=== PATIENT | male | born 1935 | race Caucasian/White ===

== ENCOUNTER 2020-09-29 19:58 | Emergency (ER) | payer OTHER ==
[~2020-09-29] VITALS: Ht 182.9 cm; Wt 108.9 kg
[2020-09-29] MEDS ORDERED: METOPROLOL TART25 MG PO (20:05)
[2020-09-29] MEDS ORDERED: ZOLOFT 50 MG TA50 MG PO (20:06)
[2020-09-29] MEDS ORDERED: XARELTO20 MG PO (20:06)
[2020-09-29] MEDS ORDERED: ACETAMINOPHEN325 MG PO (20:07)
[2020-09-29] MEDS ORDERED: LOPERAMIDE2 MG PO (20:07)
[2020-09-29] MEDS ORDERED: OLANZAPINE ODT5 MG PO (20:09)
[2020-09-29 20:41] LABS: ABSOLUTE NEUTROPHILS 3.3 thou/uL (1.4-8.2); BASOPHILS 1.4 % (0.0-2.0); EOSINOPHILS 3.7 % (0.0-3.0); HEMATOCRIT 41.7 % (42.0-52.0); HEMOGLOBIN 13.8 gm/dL (14.0-18.0); LYMPHOCYTES 35.2 % (24.0-44.0); MCH 29.9 pg (26.0-34.0); MCHC 33.1 g/dL (28.0-37.0); MCV 90.4 fL (80.0-100.0); PLATELET COUNT 183 thou/uL (150-400); POLYS 49.7 % (36.0-66.0); RBC 4.62 mil/uL (4.50-6.00); WBC 6.5 thou/uL (4.0-11.0)
[2020-09-29 20:48] LABS: ANION GAP 11 mmol/L (7-16); BUN 25 mg/dL (7-18); CALCIUM 8.6 mg/dL (8.5-10.1); CHLORIDE 106 mmol/L (98-107); CO2 26 mmol/L (21-32); CREATININE 1.5 mg/dL (0.7-1.3); GLUCOSE 112 mg/dL (74-106); POTASSIUM 4.5 mmol/L (3.5-5.1); SODIUM 143 mmol/L (136-145)
[2020-09-29 20:52] LABS: URINE BILIRUBIN NEGATIVE (Negative); URINE BLOOD NEGATIVE (Negative); URINE CLARITY CLEAR; URINE COLOR YELLOW; URINE GLUCOSE-RANDOM* NEGATIVE (Negative); URINE KETONES NEGATIVE (Negative); URINE LEUKOCYTES-REFLEX TRACE (Negative); URINE NITRITE-REFLEX NEGATIVE (Negative); URINE PROTEIN (DIPSTICK) NEGATIVE (Negative); URINE SPECIFIC GRAVITY 1.025 (1.005-1.035); URINE UROBILINOGEN 0.2 E.U./dl (0.2-1.0)
[2020-09-29 20:59] LABS: ALBUMIN 3.2 g/dL (3.4-5.0); DIRECT BILIRUBIN < 0.1 mg/dL (<0.1-0.2); LIPASE 288 U/L (73-393); SALICYLATE < 2.8 mg/dL (2.8-20.0); SGOT 28 U/L (15-37); SGPT 37 U/L (16-63); TOTAL BILIRUBIN 0.3 mg/dL (0.2-1.0); TOTAL PROTEIN 7.1 g/dL (6.4-8.2); TROPONIN-I <0.06 ng/mL (<0.06)
[2020-09-29 21:06] LABS: AMP/METHAMP Negative (Negative); BARBITURATES Negative (Negative); BENZODIAZEPINES Negative (Negative); COCAINE Negative (Negative); METHADONE Negative (Negative); OPIATES Negative (Negative); PCP Negative (Negative)
[2020-09-30 07:59] VITALS: BP 146/77
--- NOTE | 2020-10-02 07:18 | EKG ---
[address] [place] [address] ELECTROCARDIOGRAM REPORT Name: TAE VILLALBA [id number] Admission: 09/29/20 Attend Phys: Discharge: 09/30/20 Date of : 35 Report #: [id number] [facility] ED Test Date: 2020-09-29 Test Time: 20:17:55 Pat Name: TAE DEEJAY Department: Room: Gender: M Time Study Technician: : 1935 Requested By: Ramirez Shultz Order Number: [id number] MD: Tae Love Measurements Intervals Dewart Rate: 67 P: IA: QRS: 29 QRSD: 96 T: 41 QT: 486 QTc: 513 Interpretive Statements Atrial fibrillation Borderline low voltage, extremity leads Prolonged QT interval No previous ECG available for comparison Electronically Signed On 10-02-2020 7:18:14 CDT by Tae Love [email or web address] <ELECTRONICALLY SIGNED> By: Tae Love MD, [facility] 10/02/20 0718 16 16 Tae Love MD, FACC /EPI
== END 2020-09-30 08:07 | disposition still patient (30) ==
LOC: ER 19:58
PROVIDERS: Emergency Medicine
DX: R45.1 Restlessness and agitation (principal); F03.90 Unspecified dementia, unspecified severity, without behavioral disturbance, psychotic disturbance, mood disturbance, and anxiety; F32.9 Major depressive disorder, single episode, unspecified; E78.5 Hyperlipidemia, unspecified; I10 Essential (primary) hypertension; I48.91 Unspecified atrial fibrillation; Z79.899 Other long term (current) drug therapy; Z88.8 Allergy status to other drugs, medicaments and biological substances; Z20.822 Contact with and (suspected) exposure to COVID-19

== ENCOUNTER 2020-09-30 05:21 | Inpatient (IN) | payer OTHER ==
[~2020-09-30] VITALS: Ht 182.9 cm; Wt 109.3 kg
[~2020-09-30 05:21] MED LIST: ACETAMINOPHEN325 MG PO; LOPERAMIDE2 MG PO; METOPROLOL TART25 MG PO; OLANZAPINE ODT5 MG PO; XARELTO20 MG PO; ZOLOFT 50 MG TA50 MG PO
[2020-09-30 09:16] VITALS: BP 156/91
--- NOTE | 2020-09-30 10:14 | NUR ---
PT. WAS AN ACTIVE PARTICIPANT IN R.T. THIS MORNING WITH STAFF AND HIS PEERS. SHE DID NOT TALK BUT DID HELP KICK THE BEACH BALL AROUND. HE DOES ANSWER QUESTIONS WHEN ASKED. HE IS NEW TO THE UNIT.
[2020-09-30 10:56] VITALS: BP 146/77
--- NOTE | 2020-09-30 14:37 | NUR ---
1435 PATIENT NEW ADMIT HERE FROM [facility], PATIENT AT FIRST WAS COOPERATIVE. PATIENT CAME TO US BECAUSE OF AGGRESSION AND VERBALLY INAPPROPRIATE WORDS TO STAFF. WHEN I TRIED TO TAKE PATIENTS PICTURE HE TOLD ME TO GET AWAY FROM HIM. DR THOMAS CAME TO TALK WITH PATIENT AND HE TOLD DR THOMAS TO GET AWAY FROM HIM. HE STATED HE WAS NOT GOING TO TALK WITH THE DR. DR THOMAS ORDERED GEODON 15 MG IM, WE HAD TO CALL SECURITY AND THEY ASSSISTED WITH GIVING IM. PATIENT IS ALERT ORIENTED TO SELF ONLY AND DOES NOT UNDERSTAND THAT HE IS IN A HOSPITAL. PATIENTS ABDOMEN SOFT BOWEL SOUNDS PRESENT PATIENTS LUNGS CLEAR. PATIENT HAS SCARS ON LEFT ARM RIGHT ARM HAS SOME FADED SPOTS. PATIENT ALSO HAS A INGROWN TOENAIL ON FOOT HE WOULD NOT LET US LOOK AT THE TOE. PATIENTS DAUGHTER GAVE ME AND DR THOMAS INFORMATION ABOUT PATIENT. DAUGHTER JESSY STATES THESE BEHAVIORS ARE NEW TO HER AND STATES SHE NEEDS TO LOOK UP DEMENTIA. PATIENT UNABLE TO TELL ME ABOUT SI/HI/AH/VH AT PRESENT. PATIENT CALMED DOWN 30 MINUTES AFTER IM HE LAID DOWN; HE THEN GOT UP AND HAS BEEN EXIT SEEKING. WILL CONTINUE TO MONITOR PATIENT FOR SAFETY AND BEHAVIORS. ALSO TOLD DR THOMAS TO GET AWAY FROM HIM. DR THOMAS ORDERED GEODON 15 MG IM. AFTER PATIENT RECEIVED THE IM HE DID CALM DOWN AND WAS MORE COOPERATIVE. PATIENTS ABDOMEN SOFT BOWEL SOUNDS PRESENT, PATIENTS LUNGS CLEAR PATIENT IS AMBULATORY WITH A WALKER. PATIENT IS ALERT ORIENTED TO SELF ONLY DOES NOT UNDERSTAND THAT HE IS IN A HOSPITAL.
[2020-09-30 19:00] VITALS: BP 124/76
--- NOTE | 2020-10-01 04:36 | NUR ---
PT HESITANT TO TAKE HS MEDS. HE HAD BLOCKED HIS DOOR WITH ROLLER WALKER. PT ATTEMPTED TO CLAY ME AWAY, WHEN AIDE CAME IN, HE CHASED HIM AND FINALLY TOOK MEDS FROM ME. PT STATING " I HAVE NEVER SEEN SO MANY PEOPLE WALK INTO MY HOTEL ROOM" PT NOTED TO BE MORE IRRITATED TI WHEN BEING CHECKED ON-PRN OLANZAPINE GIVEN-WITH HELP FROM SECURITY-PT THEREAFTER BEEN SLEEPING SOUNDLY. PT HAS SCABS ON HANDS AND HE SCRATCHES THEM CAUSING BLEEDING.HE DENIES PAIN. NOT VERY COOPERATIVE WITH CARE.NO S/SX OF RESP DISTRESS DURING THE NOC.
[2020-10-01 08:59] VITALS: BP 146/66
--- NOTE | 2020-10-01 12:36 | NUR ---
Patient assessment and treatment plan completed.
--- NOTE | 2020-10-01 12:41 | NUR ---
DYSPHORIC MOOD-SHORT ABRUPT RESPONSES TO QUESTIONS ASKED.BECOMES FRUSTRATED AT BREAKFAST WHEN UNABLE TO GET MILK CARTON OPEN-RELUCTANTLY ACCEPTS HELP FROM STAFF. DID TAKE MEDS -REQUIRED SOME PROMPTING BUT DID TAKE ON 2ND REQUEST. ORIENTED TO NAME ONLY-STATES SOMEONE IS PICKING HIM UP "IN A COUPLE HOURS" AND ASKING TO HAVE LUNCH MEAL CHARGED TO HIS ROOM, HAS BEEN WITHDRAWN TO ROOM COMING OUT FOR MEALS, DOES REPORT SOME JOINT PAIN/STIFFNES UPON STANDING UP FROM LUNCH BUT ONCE BEGAN TO AMBULATE WAS STEADY WITHOUT ASSIST.
--- NOTE | 2020-10-01 17:40 | NUR ---
APPROACHED IN ROOM THIS AM FOR ASSESSMENT ROOM SMELLS STRONGLY OF URINE AND BED SHEETS ARE WET-INITALLY RESISTIVE WITH GETTING OUT OF SOILED CLOTHING BUT DID EVENTUALLY COMPLY. ENJOYS VISITING WITH NURSING STAFF IN ROOM BUT IS UPSET ABOUT NOT HAVING TV. 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 DURING WITH STAFF IS STATES "DO YOU SEE THAT BUG UP THERE-(POINTING TO CEILING) "ITS BIG A LIZARD"AGAIN MENTIONS THE BUGS ON CRAWLING ON THE CEILING APPROX 10 MINUTES LATER. STATES "THAT OTHER HOSPITAL I WAS STAYING BEFORE THIS HAD THOUSANDS OF ANTS-IT STARTS OUT ONE AND THEN THERE ARE ABOUT A THOUSAND CRAWLING ALL OVER YOU" DID EVENTUALLY ALLOW STAFF TO ASSIST IN CHANGING DEPEND THAT WAS SATURATED WITH FOUL SMELLING URINE -HAD GATHERED UP SEVERAL CLOTHING ITEMS WHICH WERE URINE SOAKED IN A PILLOWCASE AND ALLOWED THIS NURSE TO TAKE TO LAUNDRY. IS REPORTING BACK PAIN STATING "ITS THAT BED THEY HAD ME SLEEP IN AT THAT OTHER PLACE"
[2020-10-01 19:49] VITALS: BP 145/85
--- NOTE | 2020-10-01 21:07 | NUR ---
AT BEGINNING OF SHIFT PT WAS ON THE PHONE YELLING THAT HE WANTS OUT OF FACILITY. YELLING THAT THERE IS NO TV NO FURNITURE IN THE ROOM. THAT HIS SON AND ARE DRIVING FROM [facility] TO COME GET HIM. THAT HE IS LEAVING TONIGHT. NURSE WALKED AWAY FROM PT. PT LATER AMBULATED IN HAYS WAS NO LONGER YELLING OR STATING HE WAS LEAVING. PT EXPRESSED CONCERN RE FEMALE PT THAT WAS YELLING REPETITIVE STATEMENTS AND STATED HOW SHE NEEDED MEDICATION LIKE HIM TO STOP HER ANXIOUS THOUGHTS. PT COMPLIANT WITH HS MEDS, HS SNACK. PT COMPLIANT WITH CHANGING OF CLOTHES FOR BED. PT HAD BREIF ON AND IS INCONTINENT OF URINE. PT STATED HE HAS L HIP PAIN FROM AMBULANCE DRIVE, PT HAD PRN TYLENOL EARLIER.
--- NOTE | 2020-10-01 23:17 | NUR ---
PT AWAKENED STATING HE NEEDED TO GO HOME THAT HE HAS BEEN GONE FOR 4 WEEKS. PT REDIRECTED THAT HIS DAUGHTER JESSY IS AWARE THAT HE IS SPENDING THE NIGHT TONIGHT. PT STATED HE THOUGHT HE SAW A RAT IN THE CORNER OF THE ROOM. PT ABLE TO BE DISTRACTED. PT ACCUSED MALE ORACLE DRM CONSULTANT OF STEALING HIS TEETH AND CLOTHES. PT ABLE TO BE REMINDED THAT NURSE IS DOING HIS LAUNDRY AND THAT HIS DENTURES ARE IN THE DENTURE CUP. PT DID RETURN TO RESTING AND STATED HE WOULD GET UP WHEN THE NURSE GETS UP.
--- NOTE | 2020-10-01 23:48 | NUR ---
PT AWAKENED WANTING TO HOME, PT STATED HE THOUGHT HE SAW A LION CUB IN HIS DRESSER OR A SQUIRREL. PT ASKED ABOUT HIS LAUNDRY BEING DONE BECAUSE HE IS READY TO GO HOME. PROVIDER MANAGER ROUTE UPDATED, NEW ORDER OBTAINED.
--- NOTE | 2020-10-02 00:09 | NUR ---
PT TOLD NURSE HE SEES A GORILLA SMILING AT HIM GIVING TO BABIES IN THE LIGHT ABOVE HIS BED, BUT WHEN THE NURSE TURNS THE LIGHT ON IT GOES AWAY. BED ALARM ON. PRN PROVIDED.
--- NOTE | 2020-10-02 02:40 | NUR ---
PT AWAKENED, STATED HE SAW ROOF SUPPLIES BEING DELIVERED AND THAT THEY WERE SITTING OUTSIDE TO LONG. PT ENCOURAGED TO COME AND SIT IN DAY ROOM WITH STAFF AND HE COMPLIED. 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
--- NOTE | 2020-10-02 11:32 | NUR ---
Assess due to new admit to [facility]. Eating 100% of meals, BMI 32.5-obese. No nutrition concerns. Low nutrition risk
--- NOTE | 2020-10-02 13:26 | NUR ---
PATIENT CARE ASSUMED AT 0700 - HAS BEEN SLEEPING NON STOP - NO BREAKFAST - NO LUNCH. SEVERAL ATTEMPTS MADE BUT PATIENT IN DEEP SLEEP. SNORING LOUDLY. NO MEDICATIONS ADMINISTERED AT BREAKFAST. SPOKE TO DAUGHTER SEVERAL TIMES ABOUT MEDICATIONS AND CONCERNS. FORWARD TO TIGHT BARREL INSPECTOR TO ANSWER QUESTIONS UNABLE TO ADDRESS.
--- NOTE | 2020-10-02 15:10 | NUR ---
CORAZON received a msg that Mary called. CORAZON returned her call at [phone]. No answer. CORAZON left a msg. CORAZON team will continue to follow pt during stay on this unit.
--- NOTE | 2020-10-02 16:36 | NUR ---
PATIENT APPROACHED AT 0400 AND WAS ABLE TO AROUSE. STATED WANTED BREAKFAST -BUT ADVISED MISSED BOTH BREAKFAST WELL LUNCH. PATIENT VERY SEDATED AND STATES " I CAN BARELY HOLD MY EYES OPEN." EXPLAINED WAS HUNGRY AND READY FOR DINNER BUT NOT VEYR TALKATIVE. STILL VERY SLEEPY.
--- NOTE | 2020-10-02 18:03 | NUR ---
PATIENT WAS DESCRIBING ENCOUNTER WITH TIGER LAST EVENING. CLAIMS WENT TO [place] ON [address]. STATED WENT TO EMPLOYEE'S HOME AND SAW TIGER IN HIS ATTIC. NOW STATES TIGER WAS IN OUR FACILITY AND HAD WE NOT SEEN IT. VERY DILUSTIONAL - NOW UP AND MANUVERING TO DINING HAYS WITH HIS WALKER. CONFUSED - BUT PLEASANT.
[2020-10-02 18:08] VITALS: BP 126/69
[2020-10-02 19:29] VITALS: BP 126/69
--- NOTE | 2020-10-03 02:28 | NUR ---
10-02-20 CARE TRANSFERRED 1899. PT AAOX2, VSS RR EVEN AND NONLABORED ON RA. PT DENIES SI/HI AND PAIN. PT HAS REMAINED CALM AND COOPERATIVE THROUGHOUT NURSING ASSESSMENT. ZERO S/S OF ACUTE DISTRESS NOTED, PT WILL CONTINUE TO BE MONITOR PER [facility] PROTOCOL.
--- NOTE | 2020-10-03 09:15 | NUR ---
0700 ASSUMED CARE OF PATIENT, PATIENT IN BED SLEEPING AT THAT TIME. PATIENT TO DAYROOM FOR BREAKFAST WITH WALKER. PATIENT TO ROOM AFTER BREAKFAST TO CHANGE DUE TO INCONTINENCE. BAKER BISCUIT TO ROOM FOR MED PASS, MEDICATION TAKEN WHOLE WITHOUT DIFFICULTY. VS 139/79, 59, 18, 98.0, 94%. NO C/O PAIN, BS ACTIVE. WHEN ASKED PATIENT OF GOAL FOR THE DAY PATIENT STATES "TO GET A COUPLE OF GOOD LOOKING GIRLS HERE". BAKER BISCUIT STOPS PATIENT AND EXPLAINS THAT NONE OF THOSE COMMENTS ARE APPROPRIATE AND WE WILL NOT DISCUSS THAT ANYMORE. PATIENT CONTINUES TO ANSWER APPROPRIATLY. GOAL FOR THE DAY IS TO MAKE A LOT OF MONEY AND BE TREATED NICELY. NO CONCERNS VOICED. DENIES SI/HI. DENIES ANXIET / DEPRESSION. LBM 10/02/20 PER PATIENT. PATIENT NOT PRESENT IN GROUP THIS AM. WILL CONTINUE TO OBSERVE.
[2020-10-03 09:25] VITALS: BP 139/79
--- NOTE | 2020-10-03 10:09 | NUR ---
CORAZON received an email from Ana Lilia with [facility] asking for a referral for pt. She said Mary reached out to the community yesterday evening. She said that Mary left a msg that she said she may be bringing him today. Pt was in their memory care unit in the past. CORAZON and Dr. Paris spoke with Mary on her decision to either pick pt up today or allow the [facility] unit to treat pt so that he would have a better chance of either returning to [facility] or go to a memory care unit. Both Mary and her brother stated they would like pt to be treated and then forwarded to his facility; either [facility] or [facility]. CORAZON asked Mary to not call the nursing station excessively; CORAZON said if she needs to call over 1-2 times then she should call CORAZON's line. CORAZON team will continue to follow pt during his stay on this unit.
--- NOTE | 2020-10-03 20:34 | H ---
[facility] [place] [place] [address] HISTORY AND PHYSICAL Name: SNEHAL VILLALBA Room #: 523B-B ADM IN M.R.#: [id number] Admission: 09/30/20 Attend Phys: Rehan Paris DO Discharge: Date of : 35 Report #: [id number] THIS REPORT FOR: cc: FAM - No family physician/PCP FAM - No family physician/PCP Rehan Paris DO ~ DATE OF SERVICE: 09/30/2020 INPATIENT PSYCHIATRIC EVALUATION ATTENDING PSYCHIATRIST: Rehan Paris DO. SYSTEM CONSULTANT: Rehan Nielsen MD. REASON FOR ADMISSION: Threatening behavior with cane. CHIEF COMPLAINT: "Get away." HISTORY OF PRESENT ILLNESS: This is an 84-year-old male, . The patient resides at [facility]. He was brought in by EMS complaining of increased agitation. The report from the facility was the patient was less cooperative with staff, which prompted to have him evaluated. He was sent with the intent by the facility of him being admitted to [facility]. The patient has a history of depression, hyperlipidemia, encephalopathy, atrial fibrillation, transient ischemic attack. Interestingly, though the very limited notes that he have from the nursing facility, which is essentially a medication list, has diagnoses of major depressive disorder as well as dementia, sleep apnea. The patient reports he had an aneurysm 2 weeks ago, which I do not think is true. He denies pain, fever, chills, numbness, tingling, decreased appetite, SI, HI, visual or auditory hallucinations. His family contacted his daughter, Denise Garcia at [phone]. Dr. Mary takes care of him at the care home. He was calm in the ED. PAST MEDICAL HISTORY: Noted for hyperlipidemia, obstructive sleep apnea, on CPAP; encephalopathy; chronic atrial fibrillation, on Xarelto; generalized muscle weakness; history of UTI; benign prostatic hyperplasia; history of urinary retention; history of TIA. Cardiac risk factors include obesity, BMI of 32.5, hypercholesterolemia, negative for diabetes, tobacco use. Negative family history of cardiac disease. MEDICATIONS: half-way meds, metoprolol succinate 25 mg p.o. b.i.d., sertraline 50 mg p.o. at bedtime, rivaroxaban 20 mg p.o. at bedtime, acetaminophen, loperamide, olanzapine. [address] [address] HISTORY AND PHYSICAL Name: SNEHAL VILLALBA Room #: 523B-B ADM IN .R.#: [id number] Admission: 09/30/20 Attend Phys: Rehan Paris DO Discharge: Date of : 35 Report #: [id number] ALLERGIES: DAUGHTER DOES NOT KNOW WHY, BUT DID NOT GIVE HIM MEMANTINE AND RIVASTIGMINE. SOCIAL HISTORY: Denied tobacco use, alcohol use, or recreational drug use. He has been in assisted living since February 2019. WORK HISTORY: He retired in 1998. Worked for [employer], [employer]. FAMILY HISTORY: His 13 years ago of breast cancer. He has 4 kids. He is Taoist and went [facility] [employer]. DEVELOPMENTAL HISTORY: Born and raised in [place], [place]. Youngest of 8 kids. Several siblings. Older brother with throat cancer and tobaccoism. Sister was a smoker and emphysema. 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 so no combat in his younger years. He likes to drink beer, but was not a problematic drinker according to his sister. He denied chest pain or shortness of breath. Denied abdominal pain, reported being hungry, but is not anorexic. REVIEW OF SYSTEMS: Not obtainable due to his un-cooperation and belligerence. Weight 108.86 kilograms. The physical exam was grossly normal, was noted to that TMs had slight cerumen in both canals. He had an unsteady gait on neurologic exam. On EKG, heart rate 67 in atrial fibrillation, no discernible P waves. QRS duration is 69, QTc is prolonged at 513. Chest x-ray was done, which showed mild cardiomegaly and aortic atherosclerosis. LABORATORY DATA: Laboratories, I have not reviewed yet, but will now. Hemogram; H and H 13.8 and 41.7, white count of 6.5, platelet count 183. Chemistry: Sodium 143, potassium 4.5, chloride 106, bicarbonate 26, anion gap 11, BUN 25, creatinine 1.5, estimated GFR 45, glucose 112, calcium 8.6, magnesium 2.0, total bilirubin 0.3, direct bilirubin less than 0.1, AST 20, ALT 37, alkaline phosphatase 63. CK 93. Troponin less than 0.06. NT-proBNP was high at 1180. The patient's daughter, Denise, denies history of heart failure. Total protein 7.1, albumin low at 3.2, lipase low at 288. Urinalysis is negative. Toxicology: Salicylate less than 2.8, acetaminophen less than 2, alcohol less than 10. Urine drug screen otherwise negative. COVID-19 PCR serology was negative. MEDICATIONS: In care home, noted to be acetaminophen 325 1-2 tablets every 6 hours p.r.n., loperamide 2 caps after first loose stool, olanzapine 2.5 mg [address] [facility] [place] [address] HISTORY AND PHYSICAL Name: SNEHAL VILLALBA Room #: 523B-B ADM IN M.R.#: [id number] Admission: 09/30/20 Attend Phys: Rehan Paris DO Discharge: Date of : 35 Report #: [id number] tablet by mouth daily as needed for delirium. Calmoseptine ointment applied to the area twice daily. I think that may have been on his foot or toe. Metoprolol tartrate 25 mg oral b.i.d.. Mupirocin applied topically to left cheek affected area until healed. I did not notice a lesion on his right cheek. Sertraline 50 mg oral daily, Xarelto 20 mg oral every night. Medications in the hospital, sertraline 50 mg p.o. at bedtime, Xarelto 20 mg p.o. at bedtime, olanzapine 5 mg p.o. b.i.d. with 5 mg IM p.r.n. backup, metoprolol tartrate 25 mg p.o. b.i.d. Olanzapine 5 mg q. 6 hours p.r.n. IM for medication refusal or p.r.n. otherwise house p.r.n. PHYSICAL EXAMINATION: VITAL SIGNS: This morning, temperature 36.6, pulse 82, respirations 15, BP 146/77. MENTAL STATUS EXAMINATION: Seated in a chair, unkempt, refusing physical exam. Refusing to cooperative with the psychiatric interview. Attention is limited. Concentration is limited. Speech is loud, abrupt, increased rate. Thought process is linear and goal directed. Thought content focused on being left alone. He did not appear to be self-injurious, but would not answer questions about suicidality, homicidality. Memory impaired by history, not able to be formally tested. Mood and affect was angry, irritable and labile. Insight impaired, judgment impaired. Fund of knowledge, well below average. FORMULATION: An 84-year-old male with history of dementia, currently living in an ALS, was in memory care in the past, presenting due to assaultive behavior with his cane. 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 PLAN: Evaluate, stabilize, obtain collateral. He got 15 mg of IM Geodon, being held down by security. Right around noontime today we will start him on 5 mg oral olanzapine b.i.d. with IM backup. Risks, benefits, alternatives to use of an antipsychotic as well as mood stabilizers were discussed with his daughter, Denise, including the risk of stroke and premature . At this time, the benefits outweigh the risks given his assaultive behavior and being sent out from a care home. ESTIMATED LENGTH OF STAY: 10-14 days. STRENGTHS: Supportive family, insured. WEAKNESSES: Advanced age, progressive neurodegenerative disorder and medical [facility] [address] [place] [address] HISTORY AND PHYSICAL Name: DEEJAYSNEHAL ESTRELLA Room #: 523B-B ADM IN M.R.#: [id number] Admission: 09/30/20 Attend Phys: Rehan Paris, Discharge: Date of : 35 Report #: [id number] comorbidities. Please note greater than 60 minutes were spent on this case, greater than 50% of time was review of records and coordination of care. <ELECTRONICALLY SIGNED> By: Rehan Paris DO 10/03/20 2034 1307 1409 Rehan Paris DO /nt
[2020-10-03 21:35] VITALS: BP 142/76
--- NOTE | 2020-10-04 04:11 | NUR ---
10-03-20 CARE TRANSFERRED 1900 OBSERVED PT SITTING IN DAY ROOM SOCIALIZING WITH OTHERS. RECEIVED REPORT FROM CALL CENTER SPECIALIST THAT PT HAD REFUSED VS. PT APPROACH TWICE AND PT REFUSSED TWICE FROM THIS PRODUCTION CONTROL ANALYST. HCP Graham MCCRAY NP WAS CONSULTED. THIRD ATTEMPT PT ALLOWED B/P 142/76, APICAL PULSE 74. PT DENIES PAIN AND SI/HI. PT HAS REMAINED CALM THROUGHOUT ALL INTERACTION. ZERO S/S OF ACUTE DISTRESS NOTED, PT WILL CONTINUE TO BE MONITOR PER [facility] PROTOCOL.
[2020-10-04 11:05] VITALS: BP 113/63
--- NOTE | 2020-10-04 11:41 | NUR ---
0700 ASSUMED CARE OF PATIENT. PATIENT IN DAYROOM FOR BREAKFAST. PATIENT ASKING FOR AN EXIT TO LEAVE. STATES "I NEED TO FIND MY CAR TO LEAVE, I HAVE BEEN HERE TO LONG AND ITS TIME TO LEAVE". PATIENT WAS ASKED WHERE HE WAS AND PATIENT STATES AT A HOSPITAL BUT IM DONE VISITING". CHIMNEY BUILDER BRICK ATTEMPTED TO REORIENT PATIENT, PATIENT DENIES BEING A PATIENT AND ASKS TO LEAVE. PATIENT IRRITABLE AND AGITATED. ALERT AND ORIENTED X2. PATIENT AMB WITH WALKER TO ROOM. SLEEPS OFF AND ON IN CHAIR. DENIES PAIN, DENIES SI/HI. WILL CONTUNUE TO OBSERVE.
--- NOTE | 2020-10-04 13:09 | NUR ---
Phone call with EUSEBIO of [facility] - [phone] - DON in agreement that with Patient returning to their care. She does want them to assess before he returns. Dr. Paris agrees with this. EUSEBIO also stressed that they want him back. Just without the behaviors he was displaying. Then called NICKY Mauro. Discussed plan of care, Zunilda in agreement with plan.
--- NOTE | 2020-10-04 18:37 | NUR ---
MULTIPLE DRIED SKIN TEARS NOTED TO ARMS. AT 1220 SKIN TEAR OPENED UP AND SCANT AMT OF BLEEDING NOTED. ZGUARD APPLED WITH OPTIFOAM 3X3 DRESSING.
[2020-10-04 19:24] VITALS: BP 114/66
[2020-10-04 20:07] VITALS: BP 114/66
--- NOTE | 2020-10-05 01:22 | NUR ---
UPON START OF SHIFT, PT OBSERVED RESTLESS, EXPRESSING DESIRE TO LEAVE, PT REDIRECTABLE. UPON SHIFT ASSESSMENT, PT AOX2, TO PERSON AND PLACE. PT WITHOUT SI/HI. PT WITH AUDITORY AND VISUAL HALLUCINATIONS. PT COMPLIANT WITH PLAN OF CARE, COOPERATIVE WITH STAFF. PT REPORTS 2/10 SORE BACK PAIN. PT RECEIVING PRN PO APAP Q6HR. PT DENIES SOB WHILE ON ROOM AIR. PT TOLERATING PO INTAKE OF FLUIDS AND 2GM SODIUM DIET WITHOUT ISSUE. PT WITHOUT NAUSEA OR EMESIS. PT AMBULATING INDEPENDENTLY, INTERMITTENTLY WITH WALKER. PT INTERMITTENTLY INCONTINENT OF BOWEL AND BLADDER. PT ENCOURAGED TO NOTIFY STAFF FOR ALL NEEDS, BED LOCKED IN LOWEST POSITION, BED ALARM ON, BED LOCKED IN LOWEST POSITION, FREQUENT MONITORING WILL CONTINUE.
[2020-10-05 10:01] VITALS: BP 157/84
--- NOTE | 2020-10-05 12:21 | NUR ---
RT Progress Note- Tae's participation in the milieu and recreation therapy groups has been fairly minimal. He is often seated in day room, but keeps to himself. When encouraged to be present in groups, Tae most often declines. He is disoriented and believes he is visiting the hospital rather than a pt and this hinder's his activity level. MANAGER ROOFING will continue to encourage pts involvement and appropriate socialization.
--- NOTE | 2020-10-05 18:47 | NUR ---
0700 ASSUMED CARE OF PATIENT, PATIENT IN ROOM AT THAT TIME. PATIENT AMB TO DAYROOM FOR BREAKFAST WITH WALKER. VS STABLE. NO C/O PAIN. PATIENT NOTED RESTING IN BED OFF AND ON. WAGON DRILL OPERATOR SPOKE WITH PATIENTS DAUGHTER THIS MORNING. DAUGHTER BROUGHT SOME SHOES FOR PATIENT. PATIENT CALM AND COOPERATIVE. LS CLEAR, BS ACTIVE.
[2020-10-05 19:36] VITALS: BP 135/67
--- NOTE | 2020-10-06 04:35 | NUR ---
RECEIVED CARE OF THIS PATIENT AT 1900. PATIENT ALERT AND ORIENTED XPERSON, PLACE AND TIME. UP WITH WALKER, SLOW BUT STEADY. NO AGGRESSIVE BEHAVIOR NOTED. WAS LAYING DOWN IN ROOM ASLEEP MOST OF SHIFT. DENIES PAIN.
[2020-10-06 09:54] VITALS: BP 131/93
--- NOTE | 2020-10-06 13:58 | NUR ---
CORAZON faxed updates to the facility. CORAZON also spoke with Belle, , from the facility concerning discharge. CORAZON informed Pt would be discharge 10/09/2020 @ 1300 and that family will transport. Dr. Diaz inquired if [facility] had a psychiatrist that rounded on Pt's and if so recommended the Pt see that psychiatrist for follow up. Belle stated she would chek on that and call CORAZON back concerning the matter. Pt set for d/c 10/09/20 @1300
--- NOTE | 2020-10-06 17:43 | NUR ---
0700 ASSUMED CARE OF PATIENT, PATIENT IN BED AT THAT TIME. PATIENT AMB WITH WALKER WITH STEADY GAIT. MEDICATIONS GIVEN WITHOUT DIFFICULTY. AFTER BREAKFAST PATIENT NOTED WITH OPEN SKIN TEARS TO LEFT ARM. XEROFORM APPLIED AND WRAPPED WITH CLING GAUZE WRAP. PATIENT SHOWERED TODAY. PATIENT IN ROOM LAYING DOWN.
[2020-10-06 19:27] VITALS: BP 131/93; BP 95/55
--- NOTE | 2020-10-07 05:38 | NUR ---
RECEIVED CARE OF THIS PATIENT AT 1900. PATIENT ALERT AND ORIENTED X PERSON, PLACE AND TIME. NO BEHAVIOR ISSUES NOTED THIS SHIFT. DENIES PAIN. SLEPT MOST OF NIGHT.
[2020-10-07 08:27] VITALS: BP 138/85
[2020-10-07 14:21] VITALS: BP 138/85
--- NOTE | 2020-10-07 14:36 | NUR ---
Assumed pt care at 0700. PT WAS ALERT AND ORIENTED X3. TOOK MEDS WHOLE, NO DIFFICULTY NOTED. AMBULATES WITH A WALKER. PT HAS A STEADY GAIT WITH AMBULATION. ASSESSMENTS COMPLETED,VSS. NO SIGN OF ACUTED DISTRESS NOTED UPON ASSESSMENT. DENIES SI/HI. NO C/O OF PAIN AT THIS TIME. PT GET AGITATED BUT REDIRECTABLE. AT THIS TIME PT IS IN THE DAY ROOM WATCHING TV. WILL CONTINUE TO MONITOR.
[2020-10-07 20:02] VITALS: BP 125/77
--- NOTE | 2020-10-08 00:35 | NUR ---
Patient has been having difficulty sleeping, confused, ready to go home. Speaking loudly but unknown if it is due to being hard of hearing. Spoke with ALEJANDRO Millard. Order obtained for Trazodone 50mg po one time dose now.
--- NOTE | 2020-10-08 02:27 | NUR ---
Assumed care on 10/07/20 @ 1900, VSS, cooperative with asserssment, compliant with medications, spoke with daughter on telephone. @ 23:15 provided PRN tylenol 650 for back discomfort. Olanzapine 5mg IM provided for seeing something frightening when he awokened from sleep. Bed in low position, Bed alarm set, will continue to monitor for safety and comfort.
[2020-10-08 09:54] VITALS: BP 175/111
[2020-10-08 14:18] VITALS: BP 175/111
--- NOTE | 2020-10-08 14:42 | NUR ---
ASSUMED PT CARE AT 0700. PT WAS SLEEPING MOST OF THE DAY. PT IS AROUSABLE. TOOK MEDS WHOLE, NO DIFFICULTY NOTED. UNABLE TO ASSESS PT ORIENTATION, DUE TO PT SLEEPING. THERE WAS NO SIGN OF ACUTED DISTRESS NOTED UPON ASSESSMENTS. NO SIGN OF SI/HI, NO SIGN OF PAIN NOTED. PT AMBULATES WITH A WALKER WHEN HE IS A WAKE. PT DID NOT PARTICIPATE IN GROUPS, BECAUSE HE WAS SLEEPING. UNABLE TO EAT BREAKFAST AND LUNCH. AT THIS TIME PT IS STILL SLEEPING IN HIS ROOM. WILL CONTINUE TO MONITOR PT.
--- NOTE | 2020-10-08 14:57 | NUR ---
[facility] faxed updates to Jerad Bruno. [facility] team will remain available.
[2020-10-08 16:16] LABS: CREATININE 1.4 mg/dL (0.7-1.3); MAGNESIUM 2.2 mg/dL (1.8-2.4); POTASSIUM 4.8 mmol/L (3.5-5.1)
[2020-10-08 19:45] VITALS: BP 130/71
[2020-10-08 21:09] VITALS: BP 130/71
--- NOTE | 2020-10-09 02:29 | NUR ---
PATIENT HAS BEEN SLEEPING SINCE I ASSUMED CARE AT 1900. ROUTINE CHECKS SHOW PATIENT WITH UNLABORED BREATHING AND RESPIRATIONS. PATIENT APPEARS TO BE SLEEPING SOUNDLY. HE HAS BEEN REPOSITIONING HIMSELF IN BED. NO SIGNS OF DISTRESS. BED IN LOW POSITION AND BED ALARM IS ON. HELD HIS 2100 OLANZAPINE D/T SLEEPING SOUNDLY. CONTINUING TO MONITOR. ROUTINE ROUNDS TO ASSESS SAFETY AND STATUS OF PATIENT.
--- NOTE | 2020-10-09 03:26 | NUR ---
PATIENT SLEEPING SOUNDLY WITH OCCASIONAL SNORING BUT STARTED HEARING EXPIRATORY WHEEZES WHEN HE BREATHES. NO SIGNS OF DISTRESS. 02 SAT 93% HOB UP SLIGHTLY. PATIENT WAS AWAKENED EARLIER TO TAKE HIS PLAVIX. HE WAS AWAKENED AT THIS TIME TO ASSESS FURTHER. PATIENT A/0X1-2 AT THIS TIME. PATIENT BACK TO SLEEP. BED IN LOW POSITION. WALKER BESIDE BED. PT DENIES SI/HI/AVH. BED ALARM IS ON.
--- NOTE | 2020-10-09 05:51 | NUR ---
PATIENT SLEEPING. NO EXPIRATORY WHEEZES HEARD AT THIS TIME. RESPIRATIONS EVEN AND UNLABORED. BED IN LOW POSITON AND BED ALARM IS ON.
[2020-10-09 09:31] VITALS: BP 121/81
[2020-10-09 12:10] VITALS: BP 121/81
--- NOTE | 2020-10-09 12:22 | NUR ---
Assumed pt care at 0700. pt oriented to person and place. Assessments completed, vss. calm and co-operative with care. took meds whole, no difficulty noted . no sign of acute distress upon assessments. pt denies si/hi, denies pain at this time. ambulates with a walker. pt is excited about going home with family. At this time pt is in the day room eating lunch. will continue to monitor pt.
[2020-10-09] MEDS ORDERED: LOPRESSOR50 PO (12:28)
[2020-10-09] MEDS ORDERED: DIVALPROEX SOD500 M1 PO (12:29)
[2020-10-09] MEDS ORDERED: ZYPREXA 5 MG TAB5 M1 PO (12:30)
--- NOTE | 2020-10-11 21:35 | D ---
[facility] [place] [address] DISCHARGE SUMMARY Name: SNEHAL VILLALBA Room #: 523B-B [facility] IN M.R.#: [id number] Admission: 09/30/20 Attend Phys: Rehan Paris DO Discharge: 10/09/20 Date of : 35 Report #: [id number] THIS REPORT FOR: cc: TAMY - No family physician/PCP FAM - No family physician/PCP Rehan Paris DO ~ DATE OF SERVICE: 10/09/2020 INPATIENT PSYCHIATRIC DISCHARGE SUMMARY ATTENDING PSYCHIATRIST: Rehan Paris DO. 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 MEDICAL COMORBIDITIES: Include hypertension, chronic paroxysmal atrial fibrillation, benign prostatic hypertrophy. DISCHARGE PLAN: The patient is being discharged to the [facility] assisted living facility. Psychiatric and medical care to be performed by receiving facility. DISCHARGE DIET: 2 gram sodium per day diet. ACTIVITY LEVEL: As tolerated. The patient does require 24-hour assistance and supervision which his family is aware of as well as the facility. DISCHARGE MEDICATIONS: Are as follows: Xarelto 20 mg oral at bedtime due to paroxysmal atrial fibrillation; metoprolol tartrate 50 mg oral twice daily for rate control and hypertension; Depakote 1000 mg ER daily; olanzapine 5 mg oral twice daily, both of those for mood stabilization and impulse control and psychosis. The patient does ambulate with a walker. Recommend some physical therapy. Follow up at nursing facility. LABORATORY DATA: Significant laboratories from this admission on 10/08/2020. Chemistries were done, sodium 144, potassium 4.8, chloride 107, bicarbonate 20, anion gap 9, BUN 26, creatinine 1.4, estimated GFR 48, glucose 99, calcium 9.0, magnesium 2.2. Toxicology: Depakote level on 10/08/2020 was 33, the patient previously had been getting 750 mg a day, so increased this slightly, we would recommend Depakote level in 1 week at nursing facility. REASON FOR ADMISSION: Back on the 09/30/2020 is as follows: An 84-year-old male brought in from [facility], the patient has been less cooperative with staff. He is cared for by Dr. Vela at [address] [address] DISCHARGE SUMMARY Name: SNEHAL VILLALBA Room #: 523B-B [facility]..#: [id number] Admission: 09/30/20 Attend Phys: Rehan Paris DO Discharge: 10/09/20 Date of : 35 Report #: [id number] that facility. He evidently was swinging his cane at staff at the skilled nursing. HOSPITAL COURSE: The patient was admitted to Geriatric Psychiatry Unit. He was started on a Depakote regimen. He had only been on olanzapine p.r.n. Olanzapine was changed to schedule. Initially the patient was quite oppositional; over time the patient eased up, became less impulsive, reactive, agitated. Several telephonic family meetings were held discussing the diagnosis, prognosis. The family initially wanted to take him on early, we recommended against it. The facility stated they would not take him back unless he has been adequately treated, 20/01 assistance and supervision is recommended for this patient. On day of discharge, he was not suicidal or homicidal. PHYSICAL EXAMINATION: VITAL SIGNS: Temperature 36.1, pulse 78, respirations 18, BP 121/81, O2 sat 97%. MUSCULOSKELETAL: Assisted gait, normal station. MENTAL STATUS EXAMINATION: This is a well-developed male, appearing stated age. Attention limited. Concentration limited. Speech is normal, rate, rhythm, tone. Thought process is linear and goal directed. Thought content focused on discharge. Denied SI or HI. Denied auditory, visual, or tactile hallucinations. Mood and affect is congruent, but constricted. Memory known to be impaired, insight impaired, judgment impaired. Fund of knowledge below average at this point. PROGNOSIS: For this patient is quite guarded given age of 84, comorbidities and having vascular dementia. <ELECTRONICALLY SIGNED> By: Rehan Paris DO 10/11/205 41 01 Rehan Paris DO /nt
== END 2020-10-09 12:57 | DRG 884 ==
LOC: SBH
PROVIDERS: Internal Medicine; ADMIT Psychiatry & Neurology Psychiatry; ATTEND Psychiatry & Neurology Psychiatry
DX: F01.51 Vascular dementia, unspecified severity, with behavioral disturbance (principal); I48.21 Permanent atrial fibrillation; F29 Unspecified psychosis not due to a substance or known physiological condition; N40.0 Benign prostatic hyperplasia without lower urinary tract symptoms; I10 Essential (primary) hypertension; F32.9 Major depressive disorder, single episode, unspecified; E78.5 Hyperlipidemia, unspecified; G47.33 Obstructive sleep apnea (adult) (pediatric); E66.9 Obesity, unspecified; Z68.32 Body mass index [BMI] 32.0-32.9, adult; Z86.73 Personal history of transient ischemic attack (TIA), and cerebral infarction without residual deficits; Z88.8 Allergy status to other drugs, medicaments and biological substances
CPT/HCPCS: 10880

== ENCOUNTER 2021-04-22 10:00 | Emergency (ER) | payer OTHER ==
[~2021-04-22] VITALS: Ht 180.3 cm; Wt 64.4 kg
[~2021-04-22 10:00] MED LIST changes: +DIVALPROEX SOD500 M1 PO; +LOPRESSOR50 PO; +ZYPREXA 5 MG TAB5 M1 PO
[2021-04-22] MEDS ORDERED: METOPROLOL TART25 MG PO (10:45)
[2021-04-22] MEDS ORDERED: HYDROXYZINE HCL10 M2 PO (10:45)
[2021-04-22 11:11] VITALS: BP 125/68
== END 2021-04-22 11:11 | disposition home or self-care (01) ==
LOC: ER 10:00
DX: R04.0 Epistaxis (principal); I48.91 Unspecified atrial fibrillation; Z79.899 Other long term (current) drug therapy; Z88.7 Allergy status to serum and vaccine; Z88.8 Allergy status to other drugs, medicaments and biological substances

== ENCOUNTER 2021-06-17 18:30 | Emergency (ER) | payer OTHER ==
[~2021-06-17] VITALS: Ht 182.9 cm; Wt 107.0 kg
[~2021-06-17 18:30] MED LIST changes: +HYDROXYZINE HCL10 M2 PO
[2021-06-17 19:22] LABS: ABSOLUTE NEUTROPHILS 3.5 thou/uL (1.4-8.2); EOSINOPHILS 4.9 % (0.0-3.0); HEMATOCRIT 39.1 % (42.0-52.0); HEMOGLOBIN 12.3 gm/dL (14.0-18.0); LYMPHOCYTES 26.7 % (24.0-44.0); MCH 28.5 pg (26.0-34.0); MCHC 31.6 g/dL (28.0-37.0); MCV 90.4 fL (80.0-100.0); MONOCYTES 8.7 % (1.0-8.0); PLATELET COUNT 160 thou/uL (150-400); POLYS 58.7 % (36.0-66.0); RBC 4.32 mil/uL (4.50-6.00); RDW 15.4 % (10.5-14.5)
[2021-06-17 19:32] LABS: CALCIUM 8.5 mg/dL (8.5-10.1); CREATININE 1.3 mg/dL (0.7-1.3); POTASSIUM 4.3 mmol/L (3.5-5.1)
[2021-06-17 19:42] LABS: ALBUMIN 3.2 g/dL (3.4-5.0); TOTAL BILIRUBIN 0.4 mg/dL (0.2-1.0); TOTAL PROTEIN 7.5 g/dL (6.4-8.2)
[2021-06-17 23:17] VITALS: BP 135/84
--- NOTE | 2021-06-18 12:52 | EKG ---
[place] [address] [facility] [place] [address] ELECTROCARDIOGRAM REPORT Name: TAE VILLALBA [facility] [id number] Admission: 06/17/21 Attend Phys: Discharge: 06/17/21 Date of : 35 Report #: [id number] [facility] ED Test Date: 2021-06-17 Test Time: 18:40:48 Pat Name: TAEMILAGRO BLACKTTERY Department: Room: Gender: [employer]ials: SHU : 1935 Requested By: Edward Pena Order Number: [id number] MD: Tae Love Measurements Intervals [place] Rate: 53 P: 0 MN: 70 QRS: 24 QRSD: 93 T: 10 QT: 492 QTc: 462 Interpretive Statements AFIB Borderline repolarization abnormality Compared to ECG 09/29/2020 20:17:55 No significant change Electronically Signed On 06-18-2021 12:51:49 [employer] by Tae Love [email or web address] <ELECTRONICALLY SIGNED> By: Tae Love MD, [facility] 06/18/21 [id number] Tae Love MD, FACC /EPI
== END 2021-06-17 23:20 | disposition home or self-care (01) ==
LOC: ER 18:30
PROVIDERS: Emergency Medicine
DX: I50.9 Heart failure, unspecified (principal); Z20.822 Contact with and (suspected) exposure to COVID-19; Z79.899 Other long term (current) drug therapy; Z88.8 Allergy status to other drugs, medicaments and biological substances

== ENCOUNTER → 2021-08-14 | Outpatient (CLI) | payer OTHER, MEDICARE | LOC: SJCVC 10:51 → SJCVCIMAG 10:52 | PROVIDERS: ATTEND Internal Medicine Cardiovascular Disease | DX: I48.91 Unspecified atrial fibrillation (principal); I50.9 Heart failure, unspecified; I71.2 Thoracic aortic aneurysm, without rupture; Z86.73 Personal history of transient ischemic attack (TIA), and cerebral infarction without residual deficits; R94.31 Abnormal electrocardiogram [ECG] [EKG]; U07.1 COVID-19; Z88.8 Allergy status to other drugs, medicaments and biological substances; Z79.899 Other long term (current) drug therapy; Z87.891 Personal history of nicotine dependence ==